=== PATIENT | female | born 1975 ===

== ENCOUNTER 2019-11-06 08:51 | Day surgery (SDC) | payer OTHER ==
[2019-11-06] MEDS ORDERED: TYLENOL ARTHRI650 MG PO (13:03)
[2019-11-06] MEDS ORDERED: NEURONTIN300 MG PO (13:03)
[2019-11-06] MEDS ORDERED: ZOFRAN4 MG PO (13:03)
[2019-11-06] MEDS ORDERED: ULTRAM50 MG PO (13:03)
[2019-11-06] MEDS ORDERED: MIRALAX17 GM PO (13:03)
== END 2019-11-06 18:50 | disposition home or self-care (01) ==
LOC: CIR.AMB 08:51 → ADM 09:45 → CIR.AMB 09:45
DX: K43.6 Other and unspecified ventral hernia with obstruction, without gangrene (principal); K42.0 Umbilical hernia with obstruction, without gangrene